=== PATIENT | female | born 1980 | race Caucasian/White ===

== ENCOUNTER 2019-07-09 18:07 | Observation (INO) | payer MEDICARE, SELFPAY ==
[2019-07-09 18:08] VITALS: BP 139/94; PULSE 78; RESP 15; TEMP 36.6; O2SAT 98; BMI 35.2
--- NOTE | 2019-07-09 18:45 | ED.DCSUM_ITS ---
- ER Visit Summary Date of Service: 07/09/19 Chief Complaint: Nausea, vomiting History of Present Illness: The patient is a 39 F presenting with nausea, vomiting. She states this started today. She had several episodes of vomiting today. She complains of diffuse abdominal cramping. Denies diarrhea or c onstipation. Denies urinary complaints. Denies fever. Denies sick contacts. Denies other complaints. Physical Examination: Vitals are stable. Patient is afebrile. Alert no acute distress. HEENT exam is unremarkable. Neck is supple. Lungs are clear and equal bilaterally. Heart is regular rate and rhythm. Abdomen is soft mild epigastric tenderness with no guarding or rebound Extremities are unremarkable. Skin is warm and dry. No focal neurologic deficit. Remainder of exam is unremarkable. Emergency Department Course and Treatment: Patient was given IV fluids, Zofran. CBC, chemistries unremarkable. Liver enzymes show total bili 2.8, alk phos 270, ALT 472, AST 237. Urinalysis shows 5-10 red blood cells, 0-5 white blood cells. hCG negative. Gallbladder ultrasound was obtained and shows cholelithiasis. No significant biliary dilatation. Discussed with Dr. Cai who evaluated the patient in the ED. Patient will be admitted for further evaluation. Disposition: Admission Impression: Cholelithiasis, elevated liver enzymes This note was generated with [employer] dictation software. It may contain incorrect words, spelling, and punctuation that were not noted in review of the chart prior to signing ED Disposition - Plan for ED Patient: Referrals: Lenka Live MD [Primary Care Provider] -
[2019-07-09] MEDS: 0.9% Normal Saline 1,000 ML 1000 ML IV (19:01)
[2019-07-09] MEDS: Ondansetron 4 MG/2 ML Vial IV (19:01)
[2019-07-09 19:21] LABS: Absolute Lymphocyte Count 1.44 X10^3/uL (0.83-4.51); Absolute Neutrophil Count 6.8 X10^3/uL (2.0-7.7); Basophil# 0.02 X10^3/uL; Basophil% 0.2 % (0-1); Eosinophil# 0.02 X10^3/uL; Eosinophils% 0.2 % (0-5); Hematocrit 40.6 % (37-47); Hemoglobin 13.9 g/dL (12.0-15.0); Lymphocyte # 1.44 X10^3/ul (4.0); Lymphocyte % 16.3 % (19-41); Mean Corp Hgb Conc 34.2 g/dL (32-36); Mean Corpuscular Volume 90.6 fL (81-99); Mean Platelet Vol. 10.4 fl (6.2-12.0); Monocyte# 0.49 X10^3/uL; Monocyte% 5.6 % (0-10); NRBC Flagged by Analyzer 0 % (0-5); Neutrophil # 6.82 X10^3/uL (2.7-7.7); Neutrophil % 77.4 % (47-70); Platelet Count 348 K/mm3 (150-450); RBC Distribution Width CV 13.2 % (11.6-14.6); Red Blood Count 4.48 M/mm3 (4.2-5.4); White Blood Count 8.8 K/mm3 (4.4-11.0)
[2019-07-09 19:40] LABS: ALB/GLOB Ratio 0.9 RATIO (0.9-2.4); AST(SGOT) 237 U/L (15-37); Alanine Aminotransfer ALT/SGPT 472 U/L (13-56); Albumin, Serum 3.7 g/dL (3.2-5.0); Alkaline Phosphatase 270 U/L (45-117); Anion Gap 6 (5-15); BUN 11 mg/dL (7-18); BUN/Creat Ratio 14.3 RATIO (10-20); Calcium,Total 9.2 mg/dL (8.5-10.1); Chloride 107 mmol/L (98-107); Creatinine, Serum 0.77 mg/dL (0.55-1.02); EST Glomerular Filtration Rate 90 mL/min (>60); Est Glom Filt Rate - Afr Amer 109 mL/min (>60); Estimated Creatinine Clearance 75.49 ml/min; Glucose 101 mg/dL (74-106); Lipase 252 U/L (73-393); Potassium 3.9 mmol/L (3.5-5.1); Protein, Total 7.7 g/dL (6.4-8.2); Sodium Level 138 mmol/L (136-145)
[2019-07-09 19:52] LABS: Internal QC Validated? YES +Cl - CLEAR BKGD; Pregnancy, Serum, hCG Quali. NEGATIVE Negative
[2019-07-09 20:20] LABS: Color, Urine Yellow (Yellow); Glucose, Dipstick Normal (Normal); Ketone-Dipstick 50 mg/dl (Negative); Leukocyte Esterase-Dipstick 25 /ul (Negative); Nitrite-Dipstick Negative (Negative); Occult Blood-Urine 250 /ul (Negative); Protein-Dipstick Negative (Negative); Urine Clarity Cloudy (Clear); Urine Urobilinogen 4 mg/dl (Normal)
[2019-07-09 20:21] LABS: Urine Bilirubin Dipstick 1 mg/dL (Negative)
[2019-07-09 20:41] LABS: Mucous, Urine RARE /hpf (<or=2+); Squamous Epithelial Cells - UA 0-5 SEEN /hpf (5-10); White Blood Cells 0-5 SEEN /hpf (0-5)
[2019-07-09 20:42] LABS: Bacteria RARE /hpf (None Seen)
[2019-07-09 20:43] LABS: Red Blood Cells-Urine 5-10 SEEN /hpf (0-5)
--- NOTE | 2019-07-09 22:31 | US_ITS ---
STUDY: ABDOMINAL ULTRASOUND - RIGHT UPPER QUADRANT REASON FOR VISIT: Female, 39 years old pain TECHNIQUE: Ultrasound evaluation of the right upper quadrant was performed with real-time and static vaughn-scale imaging. TECHNICAL QUALITY: Adequate. COMPARISON: None. FINDINGS: Liver: The liver measures 12.8 cm. There is normal echogenicity of the liver. The bile ducts are within normal limits. There is hepatic color flow. The direction of portal flow is hepatopetal. There is no demonstrated mass lesion. Gallbladder: Normal distended gallbladder. The gallbladder wall measures 3 mm. There is a negative sonographic Lindsay's sign. There is no pericholecystic fluid. There are gallstones. Common Bile Duct (C.B.D.): The common bile duct measures 4 mm. Pancreas: Normal size of the head and body of the pancreas. Limited visualization of the pancreatic tail. There is normal echogenicity of the pancreas. There is no demonstrated pancreatic mass or cyst. Right Kidney: Normal size of the right kidney. The right kidney measures 10.5 x 4.0 x 4.1 cm. Normal renal cortex. The right cortex measures 1.1 cm. There is no demonstrated renal mass or cyst. There is no right hydronephrosis. US/Gallbladder IMPRESSION: Cholelithiasis. No significant biliary dilatation. Electronically Signed: Ravinder Romano DO at 23:25 EST Tel [phone], Service support ,
[2019-07-09 23:00] VITALS: BP 134/78; PULSE 63; RESP 16; O2SAT 98
[2019-07-10] VITALS (16 sets, daily range): BP systolic 118–152; BP diastolic 63–90; PULSE 70–106; RESP 16–18; TEMP 36.7–37.4; O2SAT 91–100; BMI 34.2
--- NOTE | 2019-07-10 00:36 | PCM.HP.STD ---
Problem List (1) Cholelithiasis Status: Acute Qualifiers: Cholelithiasis location: gallbladder and bile duct Cholecystitis presence: without cholecystitis Biliary obstruction: with biliary obstruction Qualified Code(s): K80.71 - Calculus of gallbladder and bile duct without cholecystitis with obstruction (2) Elevated liver enzymes Status: Acute History of Present Illness Date of Admission: 07/10/19 The patient is a 39 year old F who reports nausea vomiting well. She also reports epigastric pain going away. Reports her nausea has improved as well. No fevers or chills. This is never happened in the past she has reported intermittent sharp pain in her epigastric area over the last few years. She denies any radiation. No back pain. Past Medical History Allergies No Known Allergies Allergy (Verified 07/09/19 18:11) Home Medications: Ambulatory Orders Medication Instructions Recorded Fluvoxamine Maleate [Fluvoxamine 150 mg PO DAILY 12/30/13 Maleate ER] Fluticasone Propionate 2 spray NASAL DAILY 07/09/19 Surgical History: tonsillectomy Smoking Status: Never smoker - *Family History Maternal History Items: No pertinent history Review of Systems Constitutional: Denies: Anorexia, Fever HEENT: Denies: Difficulty Swallowing Cardiovascular: Denies: Chest Pain Respiratory: Denies: Cough, Shortness of Breath Gastrointestinal: Reports: Abdominal Pain, Nausea, Vomiting. Denies: Constipation, Diarrhea, Dyspepsia Genitourinary: Denies: Dysuria Musculoskeletal: Denies: Joint Tenderness Skin: Denies: Dryness Neurological: Denies: Focal weakness Psychiatric: Reports: Anxiety Hematologic/ Lymphatic: Denies: Anemia VTE Information - Inpt Only VTE Present on Admission: No VTE Mechan Device Prophylaxis: SCD's Patient Problems: Active and Suspected Problems Cholelithiasis (Acute) Elevated liver enzymes (Acute) - Physical Exam Vitals/I&O's: Vital Signs Temp Pulse Resp BP Pulse Ox 97.9 F 63 16 134/78 H 98 07/09/19 18:08 07/09/19 23:00 07/09/19 23:00 07/09/19 23:00 07/09/19 23:00 Oxygen Delivery Method Room Air Weight: 186 lb 11.704 oz Body Mass Index (BMI) 35.2 Intake and Output for Last 24 Hours 07/08/19 07/09/19 07/10/19 23:59 23:59 23:59 Intake Total 1000 / 1000 Balance 1000 / 1000 General: Alert, Oriented x3 Neck: No JVD Lungs: Normal air movement Cardiovascular: Regular rate, Regular Rhythm Abdomen: Soft, Non Tender, Non-Distended Extremities: No clubbing Skin: No rashes Musculoskeletal: No Tenderness to Palpation of Joints or Extremities Neurological: Cranial nerves II-XII grossly intact Psych/Mental Status: Normal Affect Laboratory Results 07/09/19 19:02: WBC 8.8, RBC 4.48, Hgb 13.9, Hct 40.6, MCV 90.6, MCH 31.0, MCHC 34.2, RDW Std Deviation 44.0 H, RDW Coeff of Nasir 13.2, Plt Count 348, MPV 10.4, Immature Gran % (Auto) 0.300, Neut % (Auto) 77.4 H, Lymph % (Auto) 16.3 L, [place] % (Auto) 5.6, Eos % (Auto) 0.2, Baso % (Auto) 0.2, Absolute Neuts (auto) 6.8, Absolute Lymphs (auto) 1.44, Nucleated RBC % 0 07/09/19 19:02: Sodium 138, Potassium 3.9, Chloride 107, Carbon Dioxide 25.0, Anion Gap 6, BUN 11, Creatinine 0.77, Estim Creat Clear Calc 75.49, Est GFR (MDRD) Af Amer 109, Est GFR (MDRD) Non-Af 90, BUN/Creatinine Ratio 14.3, Glucose 101, Calcium 9.2, Total Bilirubin 2.80 H, AST 237 H, ALT 472 H, Alkaline Phosphatase 270 H, Total Protein 7.7, Albumin 3.7, Globulin 4.0, Albumin/Globulin Ratio 0.9, Lipase 252 07/09/19 19:02: Serum , Qual NEGATIVE 07/09/19 20:10: Urine Color Yellow, Urine Clarity Cloudy, Urine pH 6.0, Ur Specific [place] 1.020, Urine Protein Negative, Urine Glucose (UA) Normal, Urine Ketones 50 H, Urine Occult Blood 250 H, Urine Nitrite Negative, Urine Bilirubin 1 H, Urine Urobilinogen 4 H, Ur Leukocyte Esterase 25 H, Urine RBC 5-10 SEEN, Urine WBC 0-5 SEEN, Ur Squamous Epith Cells 0-5 SEEN, Urine Bacteria RARE, Urine Mucus RARE Clinical Impression(s) from Imaging Studies Gallbladder Ultrasound 07/09/19 22:31 IMPRESSION: Cholelithiasis. No significant biliary dilatation. Electronically Signed: Ravinder Romano DO at 23:25 EST Tel [phone], Service support , Assessment/Plan All Active Problems Cholelithiasis (Acute) Elevated liver enzymes (Acute) 39-year-old female with cholelithiasis and elevated liver enzymes 1. The patient is having nausea and vomiting which has subsided as well as is improved. She does have a movement pattern. She also has a small and large bowel sounds I believe that her nausea and vomiting epigastric pain resulting from a common bile duct stone. This may still be placed over it may have passed. I recommend the patient be admitted and kept n.p.o. and recheck LFTs in the morning. If LFTs have stayed the same or gone up I will perform ERCP. LFTs have gone down I would recommend laparoscopic cholecystectomy with cholangiogram and possible subsequent ERCP. I discussed this with the patient and she is agreeable. Aneesh Cai MD Pager: [facility] [address] [place] [address], [address] [place] [address] Office:
[2019-07-10] MEDS: 0.9% Normal Saline 1,000 ML 125 ML IV ×2 (01:14→09:38)
[2019-07-10 06:07] LABS: Absolute Lymphocyte Count 2.61 X10^3/uL (0.83-4.51); Absolute Neutrophil Count 5.3 X10^3/uL (2.0-7.7); Basophil# 0.04 X10^3/uL; Basophil% 0.5 % (0-1); Eosinophil# 0.04 X10^3/uL; Eosinophils% 0.5 % (0-5); Hematocrit 39.4 % (37-47); Hemoglobin 12.8 g/dL (12.0-15.0); Lymphocyte # 2.61 X10^3/ul (4.0); Lymphocyte % 30.5 % (19-41); Mean Corp Hgb Conc 32.5 g/dL (32-36); Mean Corpuscular Hgb 29.5 pg (27.0-32.0); Mean Corpuscular Volume 90.8 fL (81-99); Mean Platelet Vol. 10.6 fl (6.2-12.0); Monocyte# 0.54 X10^3/uL; Monocyte% 6.3 % (0-10); NRBC Flagged by Analyzer 0 % (0-5); Neutrophil # 5.29 X10^3/uL (2.7-7.7); Neutrophil % 61.8 % (47-70); Platelet Count 296 K/mm3 (150-450); RBC Distribution Width CV 13.2 % (11.6-14.6); RBC Distribution Width SD 43.7 fl (35.1-43.9); Red Blood Count 4.34 M/mm3 (4.2-5.4); White Blood Count 8.6 K/mm3 (4.4-11.0)
[2019-07-10 06:17] LABS: AST(SGOT) 186 U/L (15-37); Alanine Aminotransfer ALT/SGPT 385 U/L (13-56); Albumin, Serum 3.3 g/dL (3.2-5.0); Alkaline Phosphatase 240 U/L (45-117); Anion Gap 9 (5-15); BUN 8 mg/dL (7-18); BUN/Creat Ratio 12.5 RATIO (10-20); Calcium,Total 8.4 mg/dL (8.5-10.1); Chloride 110 mmol/L (98-107); Creatinine, Serum 0.64 mg/dL (0.55-1.02); EST Glomerular Filtration Rate 111 mL/min (>60); Est Glom Filt Rate - Afr Amer 134 mL/min (>60); Estimated Creatinine Clearance 95.19 ml/min; Globulin 3.4 g/dL (2.2-4.2); Glucose 84 mg/dL (74-106); Lipase 185 U/L (73-393); Potassium 3.4 mmol/L (3.5-5.1); Protein, Total 6.7 g/dL (6.4-8.2); Sodium Level 140 mmol/L (136-145)
--- NOTE | 2019-07-10 07:56 | PCM.PN.SRG ---
Patient Problems: Active and Suspected Problems Cholelithiasis (Acute) Elevated liver enzymes (Acute) Subjective: Patient reports no further abdominal pain or nausea or vomiting this morning. - Physical Exam Vitals/I&O's: Vital Signs Temp Pulse Resp BP Pulse Ox 98.3 F 70 18 119/69 94 07/10/19 07:45 07/10/19 07:45 07/10/19 07:45 07/10/19 07:45 07/10/19 07:45 Oxygen Delivery Method Room Air Weight: 186 lb 15.232 oz Body Mass Index (BMI) 34.2 Intake and Output for Last 24 Hours 07/08/19 07/09/19 07/10/19 23:59 23:59 23:59 Intake Total 999 / 999 110 / 110 Balance 999 / 999 110 / 110 General: Alert, Oriented x3, Cooperative Lungs: Normal air movement Cardiovascular: Regular rate, Regular Rhythm Abdomen: Soft, Non Tender, Non-Distended Laboratory Results 07/09/19 19:02: WBC 8.8, RBC 4.48, Hgb 13.9, Hct 40.6, MCV 90.6, MCH 31.0, MCHC 34.2, RDW Std Deviation 44.0 H, RDW Coeff of Nasir 13.2, Plt Count 348, MPV 10.4, Immature Gran % (Auto) 0.300, Neut % (Auto) 77.4 H, Lymph % (Auto) 16.3 L, [place] % (Auto) 5.6, Eos % (Auto) 0.2, Baso % (Auto) 0.2, Absolute Neuts (auto) 6.8, Absolute Lymphs (auto) 1.44, Nucleated RBC % 0 07/09/19 19:02: Sodium 138, Potassium 3.9, Chloride 107, Carbon Dioxide 25.0, Anion Gap 6, BUN 11, Creatinine 0.77, Estim Creat Clear Calc 75.49, Est GFR (MDRD) Af Amer 109, Est GFR (MDRD) Non-Af 90, BUN/Creatinine Ratio 14.3, Glucose 101, Calcium 9.2, Total Bilirubin 2.80 H, AST 237 H, ALT 472 H, Alkaline Phosphatase 270 H, Total Protein 7.7, Albumin 3.7, Globulin 4.0, Albumin/Globulin Ratio 0.9, Lipase 252 07/09/19 19:02: Serum , Qual NEGATIVE 07/09/19 20:10: Urine Color Yellow, Urine Clarity Cloudy, Urine pH 6.0, Ur Specific [place] 1.020, Urine Protein Negative, Urine Glucose (UA) Normal, Urine Ketones 50 H, Urine Occult Blood 250 H, Urine Nitrite Negative, Urine Bilirubin 1 H, Urine Urobilinogen 4 H, Ur Leukocyte Esterase 25 H, Urine RBC 5-10 SEEN, Urine WBC 0-5 SEEN, Ur Squamous Epith Cells 0-5 SEEN, Urine Bacteria RARE, Urine Mucus RARE 07/10/19 04:58: WBC 8.6, RBC 4.34, Hgb 12.8, Hct 39.4, MCV 90.8, MCH 29.5, MCHC 32.5, RDW Std Deviation 43.7, RDW Coeff of Nasir 13.2, Plt Count 296, MPV 10.6, Immature Gran % (Auto) 0.400, Neut % (Auto) 61.8, Lymph % (Auto) 30.5, [place] % (Auto) 6.3, Eos % (Auto) 0.5, Baso % (Auto) 0.5, Absolute Neuts (auto) 5.3, Absolute Lymphs (auto) 2.61, Nucleated RBC % 0 07/10/19 04:58: Sodium 140, Potassium 3.4 L, Chloride 110 H, Carbon Dioxide 21.0, Anion Gap 9, BUN 8, Creatinine 0.64, Estim Creat Clear Calc 95.19, Est GFR (MDRD) Af Amer 134, Est GFR (MDRD) Non-Af 111, BUN/Creatinine Ratio 12.5, Glucose 84, Calcium 8.4 L, Total Bilirubin 3.50 H, AST 186 H, ALT 385 H, Alkaline Phosphatase 240 H, Total Protein 6.7, Albumin 3.3, Globulin 3.4, Albumin/Globulin Ratio 1.0, Lipase 185 Current Medications Acetaminophen (Tylenol) 650 mg PO Q6H PRN PRN PRN Reason: Pain Score 1-10/10 Fluticasone Propionate (Flonase Nasal [place]) 2 spray NASAL DAILY [facility] Fluvoxamine Maleate (Luvox Cr) 150 mg PO DAILY [facility] Pantoprazole Sodium 40 mg/ (Sodium Chloride) 110 mls @ 330 mls/hr IV Q24 [facility] Last Infusion: 07/10/19 03:09 Dose: Infused Documented by: Sodium Chloride () 1,000 mls @ 125 mls/hr IV .Q8H [facility] Last Admin: 07/10/19 01:14 Dose: 125 mls/hr Documented by: Potassium Chloride () 10 meq in 100 mls @ 100 mls/hr IV BOLUS Q1H [facility] Stop: 07/10/19 09:29 Cefotetan Disodium 2 gm/ (Sodium Chloride) 100 mls @ 200 mls/hr IV SEND TO OR W/PATIENT ONE Stop: 07/10/19 08:29 Morphine Sulfate () 2 - 4 mg IV Q2H PRN PRN PRN Reason: Pain Score 6-10/10 Morphine Sulfate () 2 - 4 mg IV Q2H PRN PRN PRN Reason: Pain Score 6-10/10 Ondansetron HCl (Zofran) 4 mg IV Q6H PRN PRN PRN Reason: NAUSEA/VOMITING Sodium Chloride () 10 - 40 ml IV UD PRN PRN Reason: SALINE FLUSH Medical Necessity - Tobacco Use Smoking Status: Never smoker Assessment/Plan All Active Problems Cholelithiasis (Acute) Elevated liver enzymes (Acute) 39-year-old female with cholelithiasis and possible choledocholithiasis 1. The patient's AST and ALT and alk phos have slightly decreased. I think that the stone in her common bile duct is likely either passed or moved out of the way. I would recommend starting with laparoscopic cholecystectomy today with cholangiogram. At that point if there is a stone in her duct it would need to be removed through laparoscopic common duct exploration or ERCP the following day. I discussed this with the patient and the patient's mother. 2. I discussed the procedure in detail with the patient. I discussed the risks, benefits, and alternatives of the procedure. I discussed the risks including but not limited to bleeding, infection, injury to surrounding organs such as the liver, bile duct, bowels. I did discuss the possibility of having to convert to an open procedure as well as the possibility that if any injuries occurred this may necessitate further surgery at a tertiary care center. Aneesh Cai MD Pager: [facility] [address] [place] [address] [address] [place] [address] Office:
--- NOTE | 2019-07-10 07:57 | EKG12_ITS ---
Test Reason : PREOP Blood Pressure : / mmHG Vent. Rate : 067 BPM Atrial Rate : 067 BPM P-R Int : 146 ms QRS Dur : 082 ms QT Int : 400 ms P-R-T Axes : 016 041 038 degrees QTc Int : 422 ms Normal sinus rhythm Normal ECG No previous ECGs available Confirmed by STEVEN MOYA, VALENCIA ([id number]), online editor DAVID COELHO ([id number]) on 07/15/2019 10:17:10 AM Referred By: SYLVIA Confirmed By:VALENCIA HARRIS MD
[2019-07-10] MEDS: Potassium Chloride 10mEq/100mL 10 MEQ/100 ML IV.SOLN. 100 MEQ IV BOLUS ×2 (08:02→09:03)
[2019-07-10] MEDS: Fluticasone 0.05% 1 SPRAY NASAL.SRY 2 SPRAY NASAL (09:45)
--- NOTE | 2019-07-10 10:36 | NURSING ---
REPORT CALLED TO TERRENCE SIDHU IN A.C.
--- NOTE | 2019-07-10 10:36 | NURSING ---
PT TO OR VIA BED
[2019-07-10] MEDS: Lactated Ringers 1,000 ML 100 ML IV ×2 (11:14→14:31)
--- NOTE | 2019-07-10 11:30 | RAD_ITS ---
STUDY: INTRAOPERATIVE CHOLANGIOGRAM. REASON FOR EXAM: Female, 39 years old. Laparoscopic cholecystectomy. FLUOROSCOPY TIME (if supplied): ( 39.9 seconds ) minutes/seconds TECHNIQUE: An intraoperative glandular was performed by the surgeon. Imaging was submitted. COMPARISON: None. FINDINGS: The visualized intrahepatic and extrahepatic biliary ducts are unremarkable. No intraluminal filling defect is seen. There is free flow of contrast into the duodenum. RAD/Cholangiogram/ O R,Initial IMPRESSION: Unremarkable intraoperative cholangiogram. Electronically Signed: Ashvin Parr, at 15:14 EST , Service support ,
--- NOTE | 2019-07-10 12:00 | GALL_PTH ---
PATIENT: DAVE HUGHES LOC: MS2 U#:[id number] AGE/SX: 39/F ROOM: MS208 RE07/10/[address]: Dr. Aneesh Cai MD : 1980 BED: 1 DIS: 07/11/2019 SPEC #: [id number] RECD: 07/10/19 16:08 STATUS: LI REOsorio #: [id number] GEMINI: 07/10/19 12:[address]: Aneesh Cai DEPT: SURGICAL PATHOLOGY RECD BY: Krishna Miller ENTERED: 07/11/19 11:21 SP TYPE: CARL HUTTON DR: Dr. Lenka Live MD Tissues: Gallbladder, NOS Procedures: Surgery Specimen Level III HEADER OPERATION: Laparoscopic cholecystectomy with IOC PRE-OP DIAGNOSIS: Cholelithiasis, elevated liver function tests TISSUE SUBMITTED: Gallbladder MICROSCOPIC DIAGNOSIS Gallbladder, cholecystectomy: Chronic cholecystitis and cholelithiasis. AM:gustavo 07/12/19 MICROSCOPIC DESCRIPTION Slides are reviewed. GROSS DESCRIPTION Received is one container labeled with the patient's name and designated gallbladder. The specimen consists of a gallbladder measuring 9 cm in length and up to 3 cm in diameter. The external surface is pink-centeno, smooth and glistening for the most part. Focally it is granular, hemorrhagic and contains cautery artifact. A portion of cystic duct measures 1.5 cm in length and 0.5 cm in diameter. The gallbladder contains green-yellow mucoid bile and multiple multifaceted centeno to greenish-brown stones measuring in aggregate 3 x 25 x 0.5 cm and 0.8 in greatest dimension. Two large whitish stones are also noted each measuring 2 cm in greatest dimension. The mucosa is bile-stained and without any mass lesions. The gallbladder wall measures up to 2.2 cm in thickness. Antique Refinisher sections from the gallbladder and the cystic duct are submitted in one cassette. The entire cystic duct is submitted. / SJ:gustavo 07/11/19 TC:3 CPT: 03787
[2019-07-10] MEDS: Bupiv/Epi 0.25% 30 ML Vial (14:00)
--- NOTE | 2019-07-10 14:13 | PCM.OPRPT ---
Problem List (1) Cholelithiasis Status: Acute Qualifiers: Cholelithiasis location: gallbladder and bile duct Cholecystitis presence: without cholecystitis Biliary obstruction: with biliary obstruction Qualified Code(s): K80.71 - Calculus of gallbladder and bile duct without cholecystitis with obstruction (2) Elevated liver enzymes Status: Acute Report of Operation Date of Procedure: 07/10/19 Pre-Operative Diagnosis: Cholelithiasis and elevated liver enzymes Post-Operative Diagnosis: Cholelithiasis Surgery/Procedure Performed:: Laparoscopic cholecystectomy with cholangiogram Specimen's removed: Gallbladder and contents Description of Procedure: After obtaining informed consent patient was brought back to the operating room. General anesthesia was induced. The abdomen was prepped and draped in usual sterile fashion. A small midline incision was made superior to the umbilicus and deepened to the level of fascia. The fascia was elevated and incised. Next the peritoneum was elevated and incised in the same fashion. Finger sweep was performed and the Borrego trocar was placed into the abdomen. The balloon was inflated. The abdomen was inflated to 15 mmHg. Next a camera was introduced into the abdomen and the abdomen was inspected. Next under direct visualization three 5-mm ports were placed one subxiphoid and 2 subcostal. Next the gallbladder was elevated and retracted toward the right shoulder. The peritoneum was stripped from the gallbladder. The infundibulum was located and retracted laterally. Next the triangle of Calot was dissected and the cystic duct and cystic artery were identified. Cholangiograms were performed. The Aparicio clamp was used to clamp across the infundibulum and the catheter needle was inserted into the gallbladder. Under fluoroscopy contrast was instilled into the gallbladder and the common duct, cystic duct as well as proximal hepatic ducts were identified. There was good filling of the duodenum. There were no filling defects noted in the common bile duct. There were filling defects in the proximal cystic duct. The clamp was removed as well as the needle and the infundibulum was grasped once more. Dissection was carried down more inferiorly and a needle was placed back into the cystic duct and a repeat cholangiogram was taken to confirm anatomy and that we were stone the cystic duct. This showed that we are still on the proximal cystic duct and the needle was removed. Three hemolock clips were placed across the cystic duct. The cystic duct was then divided leaving 2 clips on the stump. The cystic artery was clipped and divided in the same fashion. The hook cautery was then used to take the gallbladder off of the gallbladder bed. Hemostasis was obtained. Gallbladder fossa was irrigated and no active bleeding or bile leakage was noted. Next the camera switched to a 5 mm camera and introduced in the subxiphoid port. An Endopouch bag was placed through the umbilical port and the gallbladder was placed into it. The gallbladder was then removed through the umbilical incision. The camera was then reinserted through the umbilical port. The gallbladder fossa was inspected once more and noted to be hemostatic with no leaking bile. The abdomen was suctioned dry. Under direct visualization the GraNee needle was used to close the umbilical port site with 2 interrupted 0 Vicryl sutures. The 5 mm ports were removed under direct visualization. The umbilical port was then removed and the air was removed from the abdomen. The umbilical port site was irrigated local anesthetic was administered to all the incisions. All the incisions were closed with interrupted subcuticular 4-0 Monocryl sutures followed by Steri-Strips and dressings. The patient was straight catheterized at the end of the case as she had a very full bladder. The patient was awoken and taken to PACU in stable condition. - Admit VTE Documentation VTE Mechan Device Prophylaxis: SCD's
[2019-07-10] MEDS: 0.9% Normal Saline 1,000 ML 75 ML IV (15:27)
[2019-07-10] MEDS: oxyCODONE 5 MG Tablet PO (18:19)
[2019-07-11 02:39] VITALS: BP 113/65; PULSE 83; RESP 18; TEMP 38.1; O2SAT 93
[2019-07-11] MEDS: Acetaminophen 325 MG Tablet 650 MG PO (02:43)
[2019-07-11] MEDS: 0.9% Normal Saline 1,000 ML 75 ML IV (02:45)
[2019-07-11 06:01] LABS: Absolute Lymphocyte Count 1.34 X10^3/uL (0.83-4.51); Absolute Neutrophil Count 15.3 X10^3/uL (2.0-7.7); Basophil# 0.02 X10^3/uL; Basophil% 0.1 % (0-1); Hematocrit 34.9 % (37-47); Hemoglobin 11.5 g/dL (12.0-15.0); Lymphocyte # 1.34 X10^3/ul (4.0); Lymphocyte % 7.6 % (19-41); Mean Corpuscular Hgb 30.1 pg (27.0-32.0); Mean Corpuscular Volume 91.4 fL (81-99); Mean Platelet Vol. 10.1 fl (6.2-12.0); Monocyte# 0.83 X10^3/uL; Monocyte% 4.7 % (0-10); NRBC Flagged by Analyzer 0 % (0-5); Neutrophil # 15.26 X10^3/uL (2.7-7.7); Platelet Count 302 K/mm3 (150-450); RBC Distribution Width CV 13.3 % (11.6-14.6); RBC Distribution Width SD 44.3 fl (35.1-43.9); Red Blood Count 3.82 M/mm3 (4.2-5.4); White Blood Count 17.6 K/mm3 (4.4-11.0)
[2019-07-11 06:14] VITALS: BP 124/65; PULSE 90; RESP 20; TEMP 37.7; O2SAT 92
[2019-07-11 06:20] LABS: ALB/GLOB Ratio 0.9 RATIO (0.9-2.4); AST(SGOT) 158 U/L (15-37); Alanine Aminotransfer ALT/SGPT 339 U/L (13-56); Albumin, Serum 3.1 g/dL (3.2-5.0); Alkaline Phosphatase 226 U/L (45-117); Anion Gap 8 (5-15); BUN 10 mg/dL (7-18); BUN/Creat Ratio 12.5 RATIO (10-20); Chloride 109 mmol/L (98-107); EST Glomerular Filtration Rate 86 mL/min (>60); Est Glom Filt Rate - Afr Amer 104 mL/min (>60); Estimated Creatinine Clearance 76.15 ml/min; Globulin 3.3 g/dL (2.2-4.2); Glucose 104 mg/dL (74-106); Potassium 3.9 mmol/L (3.5-5.1); Protein, Total 6.4 g/dL (6.4-8.2); Sodium Level 141 mmol/L (136-145)
[2019-07-11] MEDS: Fluticasone 0.05% 1 SPRAY NASAL.SRY 2 SPRAY NASAL (09:54)
[2019-07-11] MEDS: oxyCODONE 5 MG Tablet PO (10:01)
--- NOTE | 2019-07-11 10:35 | CASEMGMT ---
TERRENCE SHELLEY Note: Intro role of CM to patient and [facility] form explained re: Observation status for treatment of choleycystis. Explained hospitalization will be paid per? insurance policy for Outpatient billing?and condition will continue to be evaluated for Inpt necessity. Also let pt know that [facility] sends paper in the billing packet with their phone number if questions arise. Discussed Pharmacy section of [facility] form and self administered medication guideline.? Pt verbalizes understanding and does not have further questions. Form signed and placed in chart, copy to pt. ALEX OCAMPO BSN CM
[2019-07-11 11:45] VITALS: BP 119/76; PULSE 76; RESP 16; TEMP 37.1; O2SAT 95
[2019-07-11] MEDS: 0.9% Saline Lock 10 ML Syringe IV (13:08)
[2019-07-11] MEDS: Ondansetron 4 MG/2 ML Vial IV (13:08)
--- NOTE | 2019-07-11 13:29 | DCINST_ITS ---
Discharge Diet: Light diet - advance as tolerated Discharge Activity: Return to Normal Activity, May Not Drive - for 2-3 days or while taking narcotic pain medicataions., - - Do not drive, work heavy equipment or sign legal documents for 24 hours. May shower in (days): 1 - with the bandage in place. Additional Activity Instructions:: Pain medication may cause nausea. You should typically eat light foods as you take your pain medications. Pain medication may also cause constipation. If this is a problem for you, please discuss with your doctor. Call your doctor if your incision/area has: Continuous Slow Oozing, Sudden Increased Bleeding, Increased Pain/ Swelling, Increased Redness, Foul Smelling Discharge, Fever of 101 or Higher Call your doctor if you observe: Fever of 101 or Higher Suture Line Care: Avoid Pulling/Pushing, Avoid Pinching/Bending Additional Dressing/Incision Instructions:: Leave operative bandaids on for 2 days. When you remove dressing, leave Steri-Strips on until your follow-up appointment, or until the Steri-Strips fall off on their own. Allergies/Adverse Reactions: Allergies No Known Allergies Allergy (Verified 07/09/19 18:11) Medications to take at Discharge Fluvoxamine Maleate [Fluvoxamine Maleate ER] 150 mg PO DAILY 12/30/13 Fluticasone Propionate 2 spray NASAL DAILY 07/09/19 Oxycodone [Oxyir] 5 - 10 mg PO Q4H PRN PRN 5 Days #30 tablet 07/11/19 The following prescriptions were given: Oxycodone [Oxyir] 5 - 10 mg PO Q4H PRN PRN 5 Days #30 tablet PRN Reason: Pain Score 6-10/10 Transmission Status: Sent to [facility] Primary Care Physician: Lenka Live MD [Primary Care Provider] - Test Results: Test results from this visit will be discussed in further detail at your follow- up appointment, if applicable. Please Follow Up With: Aneesh Cai MD When: Please call to schedule 2 week follow up appointment. [phone]
== END 2019-07-11 14:50 | disposition home or self-care (01) ==
LOC: ED 19:35 → MS3 07-10 00:52 → MS2 07-10 10:52
PROVIDERS: Admitting Provider Surgery; Emergency Provider Emergency Medicine; Family Provider Internal Medicine; PCP Internal Medicine; Visit Provider Surgery
PROC: (CPT 47610; principal; 2019-07-10 11:40)
DX: K80.10 Calculus of gallbladder with chronic cholecystitis without obstruction (principal); I10 Essential (primary) hypertension; Z79.899 Other long term (current) drug therapy; J44.9 Chronic obstructive pulmonary disease, unspecified; R74.8 Abnormal levels of other serum enzymes
CPT/HCPCS: 47563; 36415; 74300; 76000; 76705; 80053; 81001; 83690; 84703; 85025; 88304; 93005; 96361; 96365; 96366; 96375; 96376; 99218; 99251; 99284; J7030; J7120; A4216; G0378; G0463; J2405

== ENCOUNTER 2020-05-25 12:16 | Emergency (ER) | payer MEDICARE, MEDICAID, SELFPAY ==
[2019-07-15 15:10] VITALS: BMI 35.2
[2020-05-25 12:17] VITALS: BP 147/98; PULSE 86; RESP 18; TEMP 36.6; O2SAT 94; BMI 36.0
[2020-05-25] MEDS: Carbamide Peroxide 15 ML Bottle 5 DRP OTIC (13:12)
--- NOTE | 2020-05-25 14:08 | ED.VIS.GEN ---
History of Present Illness Chief Complaint: Ear Problem Narrative: Patient presenting for evaluation secondary to inability to hear out of her left ear. This been going on for 3 days. No prodrome such as runny nose sore throat sinus pain cough congestion or fevers. No injury. No drainage. No exacerbating relieving factors. Past Medical History - Allergies and Home Meds Allergies/Adverse Reactions: Allergies No Known Allergies Allergy (Verified 05/25/20 12:18) Primary Care Physician: Lenka Live MD [Primary Care Provider] - Prior records reviewed: Yes Past Medical History: - - Past history of OCD Surgical History: tonsillectomy Smoking Status: Never smoker - Family History Maternal Family History: Reports: No pertinent history Review of Systems All systems negative except as indicated General: Denies: Chills, Fever, Sweats Eyes: Denies: Visual changes - bilaterally, Diplopia ENT: Reports: Left ear pain Cardiovascular: Denies: Chest pain, Palpitations Respiratory: Denies: Dyspnea, Cough, Dyspnea on exertion Gastrointestinal: Denies: Abdominal pain, Nausea, Vomiting, Diarrhea, Melena, Hematochezia Genitourinary: Denies: Dysuria, Hematuria, Frequency Musculoskeletal: Denies: Back pain, Extremity Pain Skin: Denies: Rash, Wounds Neurological: Denies: Headache, Weakness, Numbness Physical Exam Vital Signs/Narrative: Vital Signs Temp Pulse Resp BP Pulse Ox 05/25/20 12:17 97.8 F 86 18 147/98 H 94 Inital Vital Signs reviewed: Yes General: Obese Head: Normocephalic, Atraumatic Eyes: Perrl, EOMI ENT: Moist mucous membranes, No rhinorrhea, - - Right TM is clear. Left TM is occluded by cerumen, external canal is normal Neck: Supple, Nontender Cardiovascular: Regular rate Respiratory: No distress Skin: Normal color, No rash Neurological: Alert, Oriented x3 Psychological: Normal affect Diagnostic/Tx/Re-eval - Medical Decision Making Patient presented with cerumen impaction. I did attempt to remove some with a curette, nursing was also able to irrigate some additional but there was also leftover cerumen. Patient will be sent home with Debrox. Patient has very tight appearing ear canal, likely contributing to this. She will follow-up with ear nose and throat. ED Disposition - Plan for ED Patient: Disposition: Home or Assisted Living Diagnosis: Impacted cerumen of left ear Instructions: ED Cerumen Impaction Treated Referrals: Javon Hope MD [STAFF PHYSICIAN] -
== END 2020-05-25 14:22 | disposition home or self-care (01) ==
PROVIDERS: Emergency Provider Emergency Medicine; PCP Internal Medicine
DX: H61.22 Impacted cerumen, left ear (principal)
CPT/HCPCS: 99283

== ENCOUNTER 2022-04-14 13:25 | Emergency (ER) | payer MEDICARE, MEDICAID, SELFPAY ==
[2022-04-14 13:26] VITALS: BP 132/93; PULSE 80; RESP 14; TEMP 36.1; O2SAT 98; BMI 33.3
--- NOTE | 2022-04-14 15:03 | EDS_ITS ---
HPI History of Present Illness Chief Complaint: Ear Problem Narrative Narrative: 41-year-old female presenting with concern for left ear cerumen impaction. She states has had this before. This is a chronic issue. Patient states he uses Q- tips at home. She has not tried any [id number] relief for cerumen impaction. Patient states that she has not followed up with ENT for this but has seen them in the past. She states there is some mild hearing issues in the left ear and tinnitus. These are also recurrent symptoms. Patient denies any trauma. No fever or chills. No nausea or vomiting. No headache. PFSH PFSH Home Medications fluvoxamine 100 mg capsule,extended release 24 hr 150 mg PO DAILY 12/30/13 [History Last Taken Unknown] fluticasone propionate 50 mcg/actuation nasal spray,suspension 2 spray NASAL DAILY 07/09/19 [History Last Taken Unknown] carbamide peroxide 6.5 % ear drops (Debrox) 5 drp LEFT EAR DAILY 4 days #15 mL 04/14/22 [Rx Last Taken Unknown] Allergy/AdvReac Type Severity Reaction Status Date / Time No Known Allergies Allergy Verified 04/14/22 13:26 Surgical History Hx laparoscopic cholecystectomy Social History Smoking Status: Never smoker ROS ROS ED Constitutional Constitutional ED: Denies chills or fever(s) Eyes Eyes: Denies change in vision or diplopia ENT ENT ED: Reports other Details: Cerumen impaction left ear, tinnitus, decreased hearing ; Denies rhinorrhea or sore throat Cardiovascular Cardiovascular: Denies chest pain or palpitations Respiratory/Chest Respiratory/Chest: Denies cough or dyspnea Gastrointestinal Gastrointestinal: Denies abdominal pain or constipation Genitourinary Genitourinary ED: Denies dysuria or hematuria Musculoskeletal Musculoskeletal: Denies arthralgias, back pain or neck pain Integumentary Denies abscess or Abrasions Neurologic Neurologic: Denies headache(s) Psychiatric Psychiatric: Denies anxiety or depression EXAM Physical Exam Const Vital Signs: 04/14/22 13:26 Temperature 96.9 F L Temperature Source Temporal Pulse Rate 80 Respiratory Rate 14 Blood Pressure 132/93 H Blood Pressure Mean 106 Pulse Ox 98 Oxygen Delivery Method Room Air Positive well nourished General Appearance ED: NAD; Negative for pallor HEENT Reports normocephalic and moist mucous membranes normocephalic; Negative for trauma or tenderness Face and Sinus: normal facial exam Nose: external nose normal, nares normal and nasal mucous membranes and turbinates normal External Ear: external ears normal and mastoids normal Tympanic Membrane ED: Yes TM's normal bilaterally and other Partial occlusion of the left external auditory canal with cerumen. Eyes PERRL and EOMs intact bilaterally Resp normal respiratory effort Cardio regular rate and regular rhythm Neuro oriented x3 and CN's II-XII intact bilaterally Sensorium / Orientation: alert Psych mental status grossly normal Skin no rashes or lesions noted and no wounds General Skin Exam: Negative for jaundice or pallor MDM MDM MDM Narrative Medical decision making narrative: Patient is a partial cerumen impaction in the left ear. No evidence of infection in the left ear and I can see her TM. This is an acute on chronic issue for her and I recommended that she schedule appointments with ENT and I will refer her again. Today she will get Debrox for her left ear. She is familiar with this medicine has not used it before. Patient stable for discharge. Impression: 1. Partial cerumen impaction left ear 2. Tinnitus 3. Mild hearing loss left ear Lab Data Attestation: I reviewed the patient's lab results. Discharge Plan Triage Chief Complaint: Ear Problem ED Provider: Isai Mercado Dx/Rx/DC Orders Instructions: ED Cerumen Impaction Treated Prescriptions: New Debrox 6.5 % drops 5 drp LEFT EAR DAILY 4 Days Qty: 15 0RF No Action fluvoxamine 100 MG capsule,extended release 24hr 150 mg PO DAILY fluticasone propionate 16 GM spray,suspension 2 spray NASAL DAILY Primary Care Provider: Lenka Live Referrals: Lenka Live MD [Primary Care Provider] - Don Yañez MD [Med Staff - Active Staff] - 3-5 Days Disposition Disposition: Home, Self Care
[2022-04-14 15:21] VITALS: BP 146/92; PULSE 66; RESP 18; O2SAT 99
[2022-04-14] MEDS: Carbamide Peroxide 15 ML Bottle 5 DRP OTIC (15:31)
[2022-04-14 15:35] VITALS: RESP 18
== END 2022-04-14 15:36 | disposition home or self-care (01) ==
LOC: ED 15:14
PROVIDERS: Emergency Provider Student in an Organized Health Care Education/Training Program; PCP Internal Medicine; Visit Provider Student in an Organized Health Care Education/Training Program
DX: H61.22 Impacted cerumen, left ear (principal); H93.12 Tinnitus, left ear; H91.92 Unspecified hearing loss, left ear
CPT/HCPCS: 99281

== ENCOUNTER 2022-11-02 12:53 | Emergency (ER) | payer MEDICARE, MEDICAID, SELFPAY ==
[2022-11-02 12:54] VITALS: BP 126/87; PULSE 126; RESP 18; TEMP 36.9; O2SAT 95; BMI 32.0
--- NOTE | 2022-11-02 13:59 | EX.ED.DYSGE1 ---
HPI History of Present Illness Chief Complaint: Nausea/Vomiting/Diarrhea Informant: patient Onset/Context/Timing Onset: Today Current Severity: Mild Maximum Severity: Moderate Narrative Narrative: Patient present secondary to nausea and vomiting. She states she started feeling ill early this morning has had nausea and vomiting. She has been able to keep down only a small amount of water. She had 1 single episode of diarrhea. She thinks that she may have had a fever earlier today. She denies significant abdominal pain. PFSH PFSH Medical History Acute maxillary sinusitis, unspecified COVID-19 Depression Infected dental caries OCD (obsessive compulsive disorder) Home Medications fluvoxamine 100 mg capsule,extended release 24 hr 150 mg PO DAILY 12/30/13 [History Last Taken Unknown] ondansetron 4 mg disintegrating tablet 4 mg PO Q8H PRN PRN Nausea #10 tabs 11/02/22 [Rx Last Taken Unknown] Allergy/AdvReac Type Severity Reaction Status Date / Time No Known Allergies Allergy Verified 11/02/22 12:58 Surgical History Hx laparoscopic cholecystectomy Social History Smoking Status: Never smoker ROS ROS ED Constitutional Constitutional ED: Denies chills or fever(s) Eyes Eyes: Denies change in vision or discharge from eye(s) ENT ENT ED: Denies discharge from eye(s), rhinorrhea or sore throat Cardiovascular Cardiovascular: Denies chest pain or palpitations Respiratory/Chest Respiratory/Chest: Denies cough or dyspnea Gastrointestinal Gastrointestinal: Reports diarrhea, nausea and vomiting; Denies abdominal pain Genitourinary Genitourinary ED: Denies dysuria Musculoskeletal Musculoskeletal: Denies back pain or extremity pain Integumentary Denies Abrasions or rash Neurologic Neurologic: Denies headache(s) or weakness Psychiatric Psychiatric: Denies anxiety or depression Allergic/Immunologic Allergic/Immunologic ED: Denies lip swelling or urticaria EXAM Physical Exam Const Vital Signs: 11/02/22 12:54 Temperature 98.4 F Temperature Source Temporal Pulse Rate 126 H Respiratory Rate 18 Blood Pressure 126/87 H Blood Pressure Mean 100 Pulse Ox 95 Oxygen Delivery Method Room Air Positive well nourished and well developed General Appearance ED: well developed HEENT Reports normocephalic and head/scalp atraumatic Eyes PERRL and EOMs intact bilaterally Neck supple Chest Wall inspection of chest normal and palpation of chest normal Resp normal respiratory effort and clear to auscultation bilaterally Cardio regular rate and regular rhythm GI GI Narrative: Abdomen soft with no focal tenderness to palpation. Hypoactive but present bowel sounds. Palpation: soft Extremity normal to inspection Neuro oriented x3 and no sensory deficits noted Sensorium / Orientation: alert Motor Exam: strength 5/5 throughout Psych mental status grossly normal Skin no rashes or lesions noted MDM MDM MDM Narrative Medical decision making narrative: BMP obtained to evaluate for electrolyte derangement. Patient given a liter IV fluids along with Zofran. Lab Data Labs: Laboratory Results - last 24 hr 11/02/22 14:10 Sodium 140 Potassium 3.9 Chloride 108 H Carbon Dioxide 27.0 Anion Gap 5 BUN 13 Creatinine 0.96 Estim Creat Clear Calc 61.61 Est GFR (MDRD) Af Amer 82 Est GFR (MDRD) Non-Af 68 BUN/Creatinine Ratio 13.5 Glucose 121 H Calcium 8.6 Treatment and Re-Evaluation :: Reevaluation patient does feel improved. Nausea is well controlled. She will be given Zofran for home. Abdominal examination remains benign. Discharge Plan Triage Chief Complaint: Nausea/Vomiting/Diarrhea ED Provider: Elisa Carranza Dx/Rx/DC Orders Clinical Impression: Viral gastroenteritis Instructions: ED Gastroenteritis, Viral (Adult) Prescriptions: New ondansetron 4 mg tablet,disintegrating 4 mg PO Q8H PRN PRN (Reason: Nausea) Qty: 10 0RF No Action fluvoxamine 100 MG capsule,extended release 24hr 150 mg PO DAILY Primary Care Provider: Lenka Live Referrals: Lenka Live MD [Primary Care Provider] - As Needed Disposition Disposition: Home, Self Care
[2022-11-02] MEDS: 0.9% Normal Saline 1,000 ML 1000 ML IV (14:14)
[2022-11-02] MEDS: Ondansetron 4 MG/2 ML Vial IV (14:16)
[2022-11-02 14:37] LABS: Anion Gap 5 (5-15); BUN 13 mg/dL (7-18); BUN/Creat Ratio 13.5 RATIO (10-20); Calcium,Total 8.6 mg/dL (8.5-10.1); Chloride 108 mmol/L (98-107); Creatinine, Serum 0.96 mg/dL (0.55-1.02); EST Glomerular Filtration Rate 68 mL/min (>60); Est Glom Filt Rate - Afr Amer 82 mL/min (>60); Estimated Creatinine Clearance 61.61 ml/min; Glucose 121 mg/dL (74-106); Potassium 3.9 mmol/L (3.5-5.1); Sodium Level 140 mmol/L (136-145)
== END 2022-11-02 15:22 | disposition home or self-care (01) ==
PROVIDERS: Emergency Provider Emergency Medicine; PCP Internal Medicine; Visit Provider Emergency Medicine
DX: A08.4 Viral intestinal infection, unspecified (principal); Z86.16 Personal history of COVID-19
CPT/HCPCS: 80048; 96361; 96374; 99283; J7030; A4216; J2405

== ENCOUNTER 2024-03-18 13:44 | Emergency (ER) | payer MEDICARE, MEDICAID, SELFPAY ==
[2024-03-18 13:47] VITALS: BP 135/50; PULSE 86; RESP 18; TEMP 36.9; O2SAT 96; BMI 30.7
--- NOTE | 2024-03-18 13:59 | EDS_ITS ---
HPI HPI - Psych History of Present Illness Chief Complaint: Mental Health Detail of Chief Complaint: Multiple stressors that pushed Martine to the Informant: patient and parent Onset/Context/Timing Onset: - (Started 3 years ago increased recently) Context: Sudden Onset Conflict: - (Problems with housing) Timing: Continuous and Waxes and wanes Current Severity: Severe Maximum Severity: Severe Worsened by: Situational factors and Alcohol intoxication Associated Symptoms Associated Symptoms - Psych: Positive for Depressed and Easily distracted; Negative for Change in Eating, Guilt, Decreased Concentration, Hopelessness, Suicidal Thoughts, Grandiosity, Flight of Ideas, Increased activity, Pressured Speech, Agitated, Angry, Hostile, Threatening, Confusion, Paranoia, Visual Hallucinations or Auditory Hallucinations Specific plan (suicidal thought): None Narrative Narrative: Patient is a 43-year-old woman with history of depression and OCD who states she has been under significant stresses. This started 3 years ago with water leak. Because of the water leak patient and mother report mold growth. Patient and mother report they asked landlord to fix which they would not. They reported him to the city zoning and now allege that the landlord's are upset with them and making things difficult for them. This would include not having plants and pots in their apartment. Not having yard art etc. She has not seen her psychiatrist since last year. She does not have regular visits because she has no mode of transportation. Mother contacted crisis center. Crisis center informed if they believe this was significant to call 911. Apparently law enforcement was at the house. Recommended that they come to the emergency department. They present now. When asked the patient what was wrong she began to cry and was frustrated. She states she is under a lot of stress. Mother had to tell her to calm down more than once. Prior similar symptoms: Yes Recent Illness/Hospitalization: No PFSH PFSH Medical History Depression OCD (obsessive compulsive disorder) Infected dental caries COVID-19 Acute maxillary sinusitis, unspecified Home Medications ?Medication ?Instructions ?Recorded ?Last Taken ?Type fluvoxamine 100 mg 150 mg PO DAILY 12/30/13 Unknown History capsule,extended release 24 hr ondansetron 4 mg disintegrating 4 mg PO Q8H PRN PRN Nausea #10 tabs 11/02/22 Unknown Rx tablet clorazepate dipotassium 3.75 mg 3.75 mg PO TID PRN anxiety 4 days 03/18/24 Unknown Rx tablet #10 tabs Allergy/AdvReac Type Severity Reaction Status Date / Time mold Allergy Shortness Verified 03/18/24 13:47 of breath Surgical History Hx laparoscopic cholecystectomy Social History (Updated 03/18/24 @ 14:[address] Joe Dalal MD) household members: family housing: apartment Smoking Status: Never smoker ROS ROS ED Constitutional Constitutional ED: Reports chills, fever(s) and sweats Eyes Eyes: Reports blurry vision and change in vision ENT ENT ED: Reports rhinorrhea and sore throat Cardiovascular Cardiovascular: Reports chest pain, orthopnea, palpitations and paroxysmal nocturnal dyspnea Respiratory/Chest Respiratory/Chest: Reports cough, dyspnea, dyspnea on exertion, orthopnea, paroxysmal nocturnal dyspnea and sputum Gastrointestinal Gastrointestinal: Reports abdominal pain, nausea and vomiting Genitourinary Genitourinary ED: Reports dysuria, hematuria and urinary frequency Musculoskeletal Musculoskeletal: Reports arthralgias and myalgias Integumentary Reports rash Neurologic Neurologic: Reports headache(s) Psychiatric Psychiatric: Reports anxiety and depression; Denies suicidal ideation or suicidal thoughts EXAM Physical Exam Const Vital Signs: 03/18/24 13:47 03/18/24 16:27 Temperature 98.5 F Temperature Source Temporal Pulse Rate 86 81 Respiratory Rate 18 16 Blood Pressure 135/50 H 128/55 H Blood Pressure Mean 78 79 Pulse Ox 96 98 Oxygen Delivery Method Room Air Room Air Positive well nourished and well developed Constitutional Narrative: BMI is 30.7 General Appearance ED: well developed and NAD HEENT Reports moist mucous membranes normocephalic and atraumatic Eyes PERRL and EOMs intact bilaterally General Eye ED: Negative for pale conjunctiva or scleral icterus Neck no lymphadenopathy, supple and no JVD Resp normal respiratory effort and clear to auscultation bilaterally Cardio S1 normal heart sound, S2 normal heart sound and no murmurs Rate: regular rate Rhythm: regular rhythm Back/Spine no CVA tenderness Back/Spine Narrative: Inspection is normal Extremity normal to inspection General Extremety ED: Negative for edema or tenderness General Extremity: Negative for edema Neuro oriented x3, CN's II-XII intact bilaterally and no sensory deficits noted [place] Coma Scale: document GCS findings Spontaneous Obeys Commands Oriented 15 Sensorium / Orientation: alert Psych cooperative, denies hallucinations, denies homicidal ideation and denies suicidal ideation Appearance: grossly normal Attitude: calm and other Patient was calm until I asked about the plans. She became agitated and flushed. Activity / Motor Behavior: psychomotor agitation and fidgetting; Negative for appropriate eye contact, restless, mannerisms or stereotypies Speech: loud Mood & Affect: tearful and labile affect Thought Process: normal thought process and other Reports that she has gotten complements from others regarding the arguello and long arc. Thought Content: normal thought content, No suicidality, No homicidality, No phobia(s), No delusion(s), No hallucination(s), No ideas of reference, No derealization, No depersonalization and No rumination(s) Attention / Concentration: attention grossly intact and concentration grossly intact Memory / Cognition: memory grossly intact and cognition grossly intact Insight: fair Judgement: fair Skin Skin Narrative: No dermatologic lesions noted. MDM MDM MDM Narrative Medical decision making narrative: Patient under stress and is having difficulty dealing with the stresses. She is not homicidal or suicidal. In my opinion she would benefit from follow-up however this is an issue because she has no mode of transportation. Based on what the mother informed me and with the patient told me there is no indication for hospitalization. Since it is my opinion she does not need hospitalization no laboratories test were obtained. Case management was obtained to see if there is any assistance they could be given regarding making appointments problems with the landlord etc. Treatment and Re-Evaluation Narrative: Samantha from the crisis center saw patient and mother. Apparently this started over her drawing graffiti in the building using chalk. Samantha will safety plan her since mother insinuated she thought her daughter may harm her self. Daughter denies. Daughter denied to me, the nurse and Samantha. She did ask if I would prescribe an antianxiety lytic. I will write a prescription for Tranxene. Discharge Plan Triage Chief Complaint: Mental Health ED Provider: Joe Dalal Dx/Rx/DC Orders Clinical Impression: Adjustment reaction with anxiety, History of depression Instructions: Anxiety Disorders Tx Prescriptions: New clorazepate dipotassium 3.75 mg tablet 3.75 mg PO TID PRN (Reason: anxiety) 4 Days Qty: 10 0RF No Action fluvoxamine 100 MG capsule,extended release 24hr 150 mg PO DAILY ondansetron 4 mg tablet,disintegrating 4 mg PO Q8H PRN PRN (Reason: Nausea) Qty: 10 0RF Primary Care Provider: Lenka Live Referrals: [facility]ing[facility]Center [Group of Physicians] - Keep Vikram appointment Lenka Live MD [Primary Care Provider] - Print Language: Kazakh Disposition Disposition: Home, Self Care
[2024-03-18 16:27] VITALS: BP 128/55; PULSE 81; RESP 16; O2SAT 98
== END 2024-03-18 17:17 | disposition home or self-care (01) ==
PROVIDERS: Emergency Provider Emergency Medicine; PCP Internal Medicine; Visit Provider Emergency Medicine
DX: F43.22 Adjustment disorder with anxiety (principal)
CPT/HCPCS: 99282

== ENCOUNTER 2024-04-05 17:45 | Emergency (ER) | payer MEDICARE, MEDICAID, SELFPAY ==
[2024-04-05 17:46] VITALS: BP 139/91; PULSE 78; RESP 18; TEMP 36.6; O2SAT 100; BMI 29.2
--- NOTE | 2024-04-05 18:05 | RAD_ITS ---
INDICATION: pain EXAMINATION/TECHNIQUE: X-RAY - LEFT XR Foot Min 3 Views COMPARISON: FINDINGS: SOFT TISSUES: No soft tissue swelling or gas. No radiopaque foreign body. BONES/JOINTS: No acute fracture or subluxation.. Normal alignment. Preservation of the joint space.. No sclerotic or destructive changes observed. RAD/Foot min 3 Views IMPRESSION: Negative. Electronically Signed: Ravinder Romano DO at 18:53 EDT ,
--- NOTE | 2024-04-05 20:05 | RAD_ITS ---
INDICATION: injury EXAMINATION/TECHNIQUE: X-RAY - LEFT XR Ankle Min 3 Views COMPARISON: FINDINGS: SOFT TISSUES: There is soft tissue swelling, more significant laterally. No radiopaque foreign body. BONES/JOINTS: No acute fracture or subluxation.. Normal alignment. Preservation of the joint space.. No sclerotic or destructive changes observed. RAD/Ankle min 3 Views IMPRESSION: Soft tissue swelling. No acute bony injury. Electronically Signed: Ravinder Romano DO at 20:55 EDT ,
--- NOTE | 2024-04-05 20:07 | ED.VIS.LOWEX ---
HPI History of Present Illness Chief Complaint: Lower Extremity Injury Informant: patient and family Narrative Narrative: 43-year-old female states she is coming on the stairs when she put her foot on the ground the base of the stairs and sustained a fall. She believes she started to the splits she notes pulling a muscle in the right inguinal region but she notes significant pain and swelling in the lateral aspect of the left foot and ankle. She believes that she may have broken a bone. PFSH PFSH Medical History Depression OCD (obsessive compulsive disorder) Infected dental caries COVID-19 Acute maxillary sinusitis, unspecified Home Medications ?Medication ?Instructions ?Recorded ?Last Taken ?Type fluvoxamine 100 mg 150 mg PO DAILY 12/30/13 Unknown History capsule,extended release 24 hr ondansetron 4 mg disintegrating 4 mg PO Q8H PRN PRN Nausea #10 tabs 11/02/22 Unknown Rx tablet clorazepate dipotassium 3.75 mg 3.75 mg PO TID PRN anxiety 4 days 03/18/24 Unknown Rx tablet #10 tabs Allergy/AdvReac Type Severity Reaction Status Date / Time mold Allergy Shortness Verified 04/05/24 17:46 of breath Surgical History Hx laparoscopic cholecystectomy Social History household members: family housing: apartment Smoking Status: Never smoker ROS ROS ED Constitutional Constitutional ED: Denies chills, fever(s) or weight loss Eyes Eyes: Denies change in vision or diplopia ENT ENT ED: Denies ear pain, rhinorrhea or sore throat Cardiovascular Cardiovascular: Denies chest pain, orthopnea, palpitations or racing heartbeat Respiratory/Chest Respiratory/Chest: Denies cough, dyspnea or orthopnea Gastrointestinal Gastrointestinal: Denies abdominal pain, diarrhea, nausea or vomiting Genitourinary Genitourinary ED: Denies dysuria, hematuria or urinary frequency Musculoskeletal Musculoskeletal: Reports other Details: See history of present illness ; Denies arthralgias or myalgias Integumentary Denies abscess or rash Neurologic Neurologic: Denies headache(s) or weakness Psychiatric Psychiatric: Denies anxiety, depression, suicidal ideation or suicidal thoughts Endocrine Endocrinology: Denies polydipsia, polyphagia or polyuria Allergic/Immunologic Allergic/Immunologic ED: Denies mouth swelling, tongue swelling or urticaria EXAM Physical Exam Const Vital Signs: 04/05/24 17:46 04/05/24 20:40 Temperature 98 F 98.4 F Temperature Source Temporal Pulse Rate 78 68 Respiratory Rate 18 18 Blood Pressure 139/91 H 125/86 H Blood Pressure Mean 107 99 Pulse Ox 100 98 Oxygen Delivery Method Room Air Positive well nourished and well developed General Appearance ED: well developed HEENT Reports normocephalic, head/scalp atraumatic and moist mucous membranes Eyes PERRL and EOMs intact bilaterally Neck no lymphadenopathy, supple and no JVD Resp normal respiratory effort and clear to auscultation bilaterally Cardio regular rate, regular rhythm and no murmurs GI normal to inspection, nondistended, normoactive bowel sounds and non-tender Palpation: soft Back/Spine no CVA tenderness and normal ROM Extremity Extremity Narrative: There is swelling and ecchymosis noted over the anterior lateral aspect of the left ankle extending onto the dorsum of the foot. No fibular head tenderness. No fifth metatarsal tenderness. Neurovascular intact. Neuro oriented x3 and CN's II-XII intact bilaterally Sensorium / Orientation: alert Motor Exam: strength 5/5 throughout Psych mental status grossly normal Mood & Affect: Negative for depressed or tearful Skin no rashes or lesions noted and no wounds MDM MDM MDM Narrative Medical decision making narrative: Differential diagnosis includes but not limited to sprain strain fracture or tendon disruption neurovascular injury Plan of interpretation of the plain films of the left foot is no acute fracture. My independent interpretation of the plain films of the left ankle is soft tissue swelling but no obvious fracture. I believe this to be a sprain patient will be placed in Jed wrap and given crutches weightbearing as tolerated. Would recommend ice anti-inflammatories follow-up 10 to 14 days if not improved History & Record Review Discussion w/independent historian: Patient and Family Radiography Diagnostic Testing: Clinical Impression(s) from Imaging Studies Foot X-Ray 04/05/24 18:05 IMPRESSION: Negative. Electronically Signed: Ravinder Romano DO at 18:53 EDT Reading Location ID and State: [facility] / [place] Tel [phone], Service support , Ankle X-Ray 04/05/24 20:05 IMPRESSION: Soft tissue swelling. No acute bony injury. Electronically Signed: Ravinder Romano DO at 20:55 EDT , Discharge Plan Triage Chief Complaint: Lower Extremity Injury ED Provider: Erich Urbano Dx/Rx/DC Orders Clinical Impression: Fall, Sprain of ankle Instructions: ED Sprain Ankle W X Ray Prescriptions: No Action fluvoxamine 100 MG capsule,extended release 24hr 150 mg PO DAILY ondansetron 4 mg tablet,disintegrating 4 mg PO Q8H PRN PRN (Reason: Nausea) Qty: 10 0RF clorazepate dipotassium 3.75 mg tablet 3.75 mg PO TID PRN (Reason: anxiety) 4 Days Qty: 10 0RF Primary Care Provider: ALMAZ DODGE Referrals: Lenka Live MD [Med Staff - Brush Trimming Machine Setter] - 10-14 Days if not better Print Language: Lao Disposition Disposition: Home, Self Care Discharge Date/Time: 04/05/24 20:55
[2024-04-05 20:40] VITALS: BP 125/86; PULSE 68; RESP 18; TEMP 36.9; O2SAT 98
== END 2024-04-05 20:55 | disposition home or self-care (01) ==
PROVIDERS: Emergency Provider Emergency Medicine; PCP Nurse Practitioner; Visit Provider Emergency Medicine
DX: S93.402A Sprain of unspecified ligament of left ankle, initial encounter (principal); W10.9XXA Fall (on) (from) unspecified stairs and steps, initial encounter; F42.9 Obsessive-compulsive disorder, unspecified; Z79.899 Other long term (current) drug therapy; Z90.49 Acquired absence of other specified parts of digestive tract
CPT/HCPCS: 73610; 73630; 99283